=== PATIENT | female | born 1950 | race Caucasian/White ===

== ENCOUNTER → 2017-03-17 | Outpatient (CLI) | payer OTHER ==
[~2017-03-17] VITALS: Ht 160 cm; Wt 122.5 kg
[~2017-03-17] MED LIST: ACTOPLUS MET 11 EAC1 PO; ANASTROZOLE1 MG PO; ASPIRIN81 M2 PO; ATENOLOL-CHLOR1 EACH PO; CARAFATE 1 GM TA1 G1 PO; CO Q-10100 MG PO; CYCLOBENZAPRINE5 MG PO; FISH OIL 1,0001 EAC5 PO; FLEXERIL PO; GABAPENTIN100 MG PO; GLUCOPHAGE XR750 MG PO; HUMALOG PE100 UNIT/1 SUBQ; IRON159 MG PO; LANTUS SUBQ; LOMOTIL TABLET1 EACH PO; MOBIC15 MG PO; OMEPRAZOLE40 MG PO; PAIN RELIEF325 MG PO; PREDNISONE 2.52.5 M1 PO; PREDNISONE 5 MG5 M1 PO; PRINIVIL20 MG PO; RED YEAST RICE600 MG PO; SSD CREAM 1% 5050 GM TOP; VIMOVO 500-201 EACH PO; VITAMIN B-12100 MCG PO; VITAMIN D 5050000 I1 PO; VITAMIN D1000 UNI1 PO
--- NOTE | ~2017-03-17 | HPC ---
[facility] [address] [place] [address] PAIN MANAGEMENT CONSULTATION Name: RUTH FARR Room #: REG RODRIGO WhippleYeseniaMeaghanYesenia#: [id number] Admission: 03/17/17 Attend Phys: Rey Espinosa DO Discharge: Date of : 52 Report #: [id number] THIS REPORT FOR: //name// CC: Rey Jain DATE OF SERVICE: 03/17/2017 REFERRING PHYSICIAN: Nikunj Mahan M.D. CHIEF COMPLAINT: Low back pain, chronic left upper extremity pain. HISTORY OF PRESENT ILLNESS: As you know, the patient is a 66-year-old female with longstanding history of multiple pain generators. She has been referred specifically for her low back symptoms and lower extremity symptoms. She has been experiencing pain for years and has been ongoing and progressively worsened. She has tried conservative medical therapy, reporting a physical therapy in the past, also medication management. Unfortunately, all have been substandard in treating her symptoms. She has subsequently been referred to our clinic after the patient had imaging that showed moderate spinal stenosis and multiple levels of facet changes and neural foraminal stenosis. She indicates today pain is continuous, describes the pain as sharp and stabbing, places current pain score at 6/10, daily average at 8/10, worst pain has been is 10/10. The patient states pain is exacerbated with standing, walking, improves with sitting and repositioning. She has been referred by her primary care physician, Dr. Nikunj Mahan for evaluation for lumbar epidural injections. PAST MEDICAL HISTORY: 1. Diabetes mellitus type 2. 2. Hypertension. 3. Degenerative joint disease. 4. Undifferentiated connective tissue disease. 5. Spinal stenosis of lumbar spine. 6. Gastroesophageal reflux. 7. Breast cancer. PAST SURGICAL HISTORY: 1. Double mastectomy. 2. Cervical fusion. 3. Carpal tunnel release. SOCIAL HISTORY: The patient denies tobacco, alcohol, IV or illicit drug use. 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 She is not receiving workman's compensation nor is she trying to obtain disability benefits. She is unaccompanied at today's visit. [facility] [address] [place] [address] PAIN MANAGEMENT CONSULTATION Name: CHIKARUTH Room #: REG [facility].#: [id number] Admission: 03/17/17 Attend Phys: Rey Espinosa DO Discharge: Date of : 52 Report #: [id number] REVIEW OF SYSTEMS: Positive for fatigue and weakness, wearing corrective eyewear, chronic sinus problems with rhinitis, frequent diarrhea, frequent urination, nocturia, incontinence and dribbling to urine, lightheadedness and dizziness, numbness and tingling sensations, insulin-dependent diabetes, breast cancer status post double mastectomy, spinal stenosis with chronic low back pain. All other review of systems negative per 12-point review of systems other than those listed in the history of present illness. Pain impact score 54/70 indicating severe interference of daily activities secondary to pain. ALLERGIES: STATIN MEDICATIONS. CURRENT MEDICATIONS: Acetaminophen 1 tab per day, Arimidex 1 mg once a day, aspirin 81 mg per day, lisinopril 10 mg per day, Humalog sliding scale, Lantus 50 units every 12 hours, atenolol 50 mg once a day, chlorthalidone 25 mg once a day, iron 325 mg once a day, hydrocodone 5/325 one tab every 8 hours p.r.n. for pain, allopurinol 300 mg per day, omeprazole 40 mg per day, cyclobenzaprine 5 mg p.o. at bedtime, Meloxicam 15 mg per day, gabapentin 300 mg 3 times a day, prednisone 5 mg once a day, metformin 500 mg 2 tabs twice a day. IMAGING: MRI lumbar spine obtained 02/10/2017 shows no significant changes from prior lumbar imaging of 09/12/2014. There is a grade 1-2 anterolisthesis of L4 on L5 measuring about 1 cm. There is marked bilateral neural foraminal stenosis at L3-L4 and L4-L5 to moderate bilateral inferior neural foraminal stenosis L2-L3, moderate spinal stenosis at L4-L5, mild to moderate spinal stenosis at L2-L3 and L3-L4. PHYSICAL EXAMINATION: VITAL SIGNS: Blood pressure 102/76, pulse 65, respiratory rate 14, unlabored. The patient is 96% on room air, height 5 feet 3 inches tall, weight 270 pounds, BMI calculated 47.8. GENERAL: Well-developed, well-nourished, well-hydrated, morbidly obese 66-year-old female. She appears her stated age. She is placing current pain score at 6/10. HEENT: Normocephalic, atraumatic. Pupils equal, round, reactive to light. Extraocular muscles are intact. Sclerae nonicteric without injection. NEUROLOGIC: Cranial nerves 2-12 grossly intact. LUNGS: Clear to auscultation bilaterally, no wheeze, rhonchi or rales. Well healed bilateral mastectomy scars. CARDIOVASCULAR: Is regular. No appreciable gallop or rub. ABDOMEN: Soft, obese, nontender, nondistended. EXTREMITIES: Show no clubbing, no cyanosis, no edema. MUSCULOSKELETAL: Seated straight leg raising negative. Supine straight leg raising mildly positive. Reyes test is negative. Modified Gaenslen's positive [address] [address] PAIN MANAGEMENT CONSULTATION Name: RUTH FARR Room #: REG [facility].#: [id number] Admission: 03/17/17 Attend Phys: Rey Espinosa DO Discharge: Date of : 52 Report #: [id number] for axial low back pain. Ankle clonus negative. Babinski is negative. She appears to be intact to light touch from L1 through S2 dermatomes. Deep tendon reflexes are symmetrical at patella and Achilles. Ankle clonus negative. Babinski is negative. Gait slightly antalgic, stance is forward flexed lumbar spine, loss of lordotic curvature. ASSESSMENT: 1. Symptomatic lumbar radiculopathy. 2. Spinal stenosis of lumbar spine. 3. Lumbosacral spondylosis with radiculopathy. 4. Displacement of lumbar intervertebral disk with radiculopathy. 5. Facet arthropathy of the lower lumbar spine. 6. Lumbar degeneration. 7. Chronic intractable pain. PLAN: 1. The patient has been referred to our service for evaluation of suspected lumbar radiculopathy. Given the bilateral nature of the patient's symptoms and the progression of her symptoms, the likely source of the patient's pain is the spinal stenosis noted at the L4-L5 level along with the facet arthropathy of the lower lumbar spine contributing to just axial back pain. The patient and I discussed at length today the findings on her MRI. She has much better understanding of the concerns we have in regards to pathology in the lumbar region. I am pleased to advise the patient today. We have not seen much in the way of change in her lumbar region since the 2013. MRI except for some progression of the arthritic changes at the L4-L5 level. This means her symptoms at present are slowly progressing. We discussed with the patient the treatment options that we have available for lumbar radicular symptoms secondary to spinal stenosis. We discussed physical therapy and stretching exercises. We discussed medication management with neuropathic pain medications and continuation of her nonsteroidal anti-inflammatory. We discussed the epidural injections for which the patient was referred to our clinic, spinal cord stimulator therapy and ultimately surgical options. After reviewing risks and benefits of all proposed treatment options, the patient chose to begin with an epidural injection under fluoroscopic guidance. The patient has been advised risks and benefits of a lumbar epidural injection. These risks include but are not necessarily limited to bleeding, bruising, infection, worsening of pain, no relief of pain, also risk of temporary or permanent muscle weakness, temporary or permanent nerve damage, possible paralysis and . The patient states understood and wished to proceed. 2. No medication changes were made at today's visit. The patient will continue current medical therapy as previously prescribed. 3. The patient will return to our clinic in approximately 2-3 weeks. At that time, review the efficacy of today's epidural injection to determine if repeat injection might be necessary. [address] [address] PAIN MANAGEMENT CONSULTATION Name: RUTH FARR ROGELIO Room #: REG CL Raquel#: [id number] Admission: 03/17/17 Attend Phys: Rey Espinosa DO Discharge: Date of : 52 Report #: [id number] We wish to thank Dr. Nikunj Mahan for the referral of this patient to our clinic. We will keep you apprised of her response to treatment as we address her lumbar radicular symptoms secondary to spinal stenosis. Again, we wish to thank you for the opportunity to participate in her care. PROCEDURE NOTE DESCRIPTION OF PROCEDURE: L5-S1 interlaminar epidural steroid injection under fluoroscopic guidance. This is the first procedure of the first series that the patient is undergoing. After obtaining written consent, the patient was taken back to the fluoroscopy suite, placed in a prone position with pillow under the abdomen to decrease lumbar lordosis. The skin overlying the lumbosacral area was then prepped and draped in aseptic fashion. The L5-S1 vertebral interspace was then identified by AP fluoroscopy. The skin and subcutaneous tissue overlying the target site of injection was anesthetized with 3 mL 1% lidocaine. A 20-guage 4-1/2 inch Tuohy needle was then advanced under fluoroscopic guidance towards the epidural space using a paramedian approach. The epidural space was identified using loss of resistance to air technique. After negative aspiration for heme or cerebrospinal fluid, a total of 0.4 mL of Omnipaque was injected. A lumbar epidurogram was confirmed using both AP and lateral fluoroscopy. After negative aspiration for heme or cerebrospinal fluid, 3 mL of a solution containing 2 mL 40 mg per mL 80 mg total triamcinolone, 1 mL of lidocaine 1% was injected in increments. Contrast spread was noted posterior epidural space. The needle was then retracted approximately half way and needle tract flushed with 1 mL of lidocaine. Needle was then removed. There were no apparent sensory or motor deficits in the lower extremity following the procedure. A sterile bandage was placed over the injection site. The heart rate, pulse, oximetry and blood pressure were continuously monitored after the procedure. There were no apparent complications. The patient tolerated the procedure well and was carefully escorted to the recovery room in stable condition. There were no apparent complications. After meeting discharge criteria, the patient was then discharged home. By: [id number] Rey Espinosa DO /nt
[2017-03-17 10:51] VITALS: BP 102/76
== END ==
LOC: PAIN 06:34
DX: M48.06 Spinal stenosis, lumbar region (principal); M47.27 Other spondylosis with radiculopathy, lumbosacral region; M51.17 Intervertebral disc disorders with radiculopathy, lumbosacral region; I10 Essential (primary) hypertension; E11.9 Type 2 diabetes mellitus without complications; K21.9 Gastro-esophageal reflux disease without esophagitis; M19.90 Unspecified osteoarthritis, unspecified site; Z90.10 Acquired absence of unspecified breast and nipple